=== PATIENT | male | born 1985 | race Caucasian/White ===

== ENCOUNTER 2019-09-21 14:16 | Emergency (ER) | payer SELFPAY ==
[~2019-09-21] VITALS: Ht 193 cm; Wt 90.5 kg
[2019-09-21 14:20] VITALS: TEMP 97.5
[2019-09-21 15:06] LABS: BASO # 0.1 (0.0-0.2); BASO % 0.5 % (0.0-2.0); EOS # 0.4 (0.0-0.7); EOS % 3.8 % (0-4.0); GRAN % 78.8 % (42.2-75.2); HEMATOCRIT 42.6 % (42.0-52.0); HEMOGLOBIN 14.2 g/dl (13.5-18.0); LYMPH # 1.1 (1.2-3.4); LYMPH % 11.1 % (20.0-51.0); MEAN CELL VOLUME 90 fl (80.0-100.0); MEAN CORPUSCULAR HEMOGLOBIN 30 pg (27.0-31.0); MEAN CORPUSCULAR HGB CONC 33 g/dl (33.0-37.0); MEAN PLATELET VOLUME 10.4 fl (7.4-10.4); MONO # 0.6 (0.1-0.6); MONO % 5.5 % (1.7-9.3); PLATELET COUNT 217 K/mm3 (130-400); RED BLOOD COUNT 4.74 M/mm3 (4.20-5.60)
[2019-09-21 15:22] LABS: ALBUMIN 4.7 gm/dL (3.5-5.0); BILIRUBIN,TOTAL 0.6 mg/dL (0.0-1.0); CALCIUM 9.3 mg/dL (8.4-10.2); CREATININE, serum 0.79 (0.66-1.25); POTASSIUM 3.7 mmol/L (3.4-5.0)
[2019-09-21 16:04] VITALS: BP 108/75; PULSE 75
== END 2019-09-21 16:15 | disposition home or self-care (01) ==
LOC: COL.ER 14:16
PROVIDERS: Family Medicine
DX: G43.819 Other migraine, intractable, without status migrainosus (principal)
CPT/HCPCS: J1790